=== PATIENT | male | born 2000 | race African-American/Black ===

== ENCOUNTER 2024-10-30 00:09 | Day surgery (SDC) | payer OTHER, SELFPAY ==
[2024-10-24 09:38] VITALS: BMI 30.8
--- NOTE | 2024-10-24 09:46 | PC.NURSE ---
Report to Hospital entrance 7 to the right of the green pavilion located off [address] just off the [address]'s parking, at time _0630_ on date _[id number]_. Planned Procedure Time: _0830_.? Time changes happen often and if your time is changed the preop area will call you the afternoon before. - You and your visitor will be asked to self-screen and do not enter if you have any COVID symptoms. Please call surgeon if you need to reschedule. - A mask is optional within the hospital at this time. Patients may have clear liquids (water, carbonated beverages, clear teas, apple juice) until 3 hours prior to surgery with a maximum of 20 ounces. - No food from midnight until time of surgery and no smoking, or chewing tobacco (or any form of nicotine). No chewing gum, candy or mints. Take only the following medications with a SIP of water on the morning of surgery: ___None___ DO NOT STOP ANY OF YOUR OTHER PRESCRIPTION MEDICATIONS PRIOR TO SURGERY EXCEPT THE FOLLOWING Hold all vitamins and supplements for 3 days per anesthesiologist. Please no make-up, nail faroese, hairspray, perfume, deodorant, or body powder the day of surgery.? No jewelry (including any body piercings) or valuables the day of surgery, leave them at home.? Please take a shower or bath the night before, or the morning of, surgery with an antibacterial soap.? Wear comfortable, loose fitting clothing.? - Jewelry must be removed prior to entering the operating room.? Rings and piercings that are not removed may be cut off. - The hospital will not accept responsibility for valuables.? - Please leave all valuables, including medications, at home the day of surgery. If you are going home after surgery, a licensed transit bus driver must drive you home.? - NO public transportation without another adult if you receive anesthesia. - We recommend that an adult stay with you for 24 hours following discharge. - We also recommend that you do not drive, make important decision, drink alcoholic beverages, or take any drugs that were not prescribed by your health care provider for at least 24 hours after your discharge time. Follow any additional instructions given to you from your surgeon. Telephone instructions given to __Buffy Soria__and asked if any additional questions and then verbalized understanding. Patient advised to call surgeon office or pre surgery nurse liaison [phone] if any additional questions.
--- NOTE | 2024-10-29 11:39 | PM.SD2 ---
Same Day Admit/Disch: HPI History of Present Illness Chief complaint: Rt Ing Hernia Narrative: Aaron Ross is a 24 year old male who is a prisoner at [facility]. He noticed a bulge in the right groin last year while playing basketball. This bulge will come and go but will resolve with lying down. He notices pain with activity and straining. He was seen in the office and found to have a right inguinal hernia. He is taken to surgery now for robotic laparoscopic right inguinal hernia repair under anesthesia. [facility] Family History Family History Other Hypertension Social History Social History Smoking status: Former smoker Alcohol intake: never Substance use: unknown Current Housing: Decline to Answer Concerned About Future Housing: Decline to Answer Difficulty Paying Gas/Electric Bills: Decline to Answer Difficulty Paying for Meds: Decline to Answer Currently Unemployed: Decline to Answer Education: Decline to Answer Difficulty w/ Childcare or Family Care: Decline to Answer Living arrangements: incarcerated Same Day Admit/Disch: Med Pre-admit Medications Home Medications ?Medication ?Instructions ?Recorded ?Confirmed ?Type ibuprofen 600 mg tablet 600 mg PO Q6H PRN pain #14 tabs 10/30/24 Rx Review of Systems Review of Systems All systems reviewed & are unremarkable except as noted in HPI and below (HPI) Exam Const: General: comfortable, no acute distress, alert and awake HENMT: Head: normocephalic and atraumatic Mouth: Yes Normal oral and palatal mucosa present Eyes: Conjunctivae: conjunctivae normal Pupils: Equal, round and reactive pupils present EOM: EOMs intact bilaterally Neck: Neck: normal visual inspection, no lymphadenopathy and nontender Resp: Effort & Inspection: normal respiratory effort Auscultation: clear to auscultation bilaterally Cardio: Rate: regular rate Rhythm: regular rhythm Heart sounds: no gallops, no murmurs and no rubs GI: Inspection: non-distended GI Palp: Yes Soft to palpation, No Tenderness to palpation present (GI), No Hepatomegaly present, No Splenomegaly present and Yes Hernia present other (Right inguinal hernia) Other: Large right inguinal hernia that extends into the scrotum. It is reducible and mildly tender. No left inguinal hernia. Testicles scrotum penis are normal. Skin: Lesions: no lesions Rashes: no rashes Neuro: General: no focal motor deficits and CN's II-XI intact bilaterally Cranial nerves: Yes Equal, round and reactive pupils present, Yes Bilaterally intact EOM present, Yes facial symmetry and Yes Midline tongue present Speech: normal speech Motor exam (neuro): 5/5 motor strength present throughout and Motor abnormalities not present Extrem: General: no clubbing, cyanosis or edema and edema Psych: Affect: normal affect Thought process: Normal thought process present Insight: Good insight present (Psych) DS: Summary Time Spent with Patient Time attestation: Total time spent providing and/or coordinating discharge services: DS: Admitting Diagnosis Discharge Date 10/30/2024 Admitting Diagnosis Large, reducible, right inguinal hernia-plan to proceed with robotic laparoscopic repair with mesh. This procedure was discussed thoroughly with the patient including the risks benefits and alternatives. The usual length of the surgery as well as the length of recovery have been discussed. Activity restrictions following surgery and follow-up visits have been discussed. All questions were answered. He understands and agrees to go ahead. DS: Discharge Diagnosis Discharge Diagnosis (1) Right inguinal hernia: Code(s): K40.90 - Unilateral inguinal hernia, without obstruction or gangrene, not specified as recurrent Status: Chronic Assessment and Plan: Repaired laparoscopically on the de [employer] robot 10/30/[address] Martinez (2) Weight loss, unintentional: Code(s): R63.4 - Abnormal weight loss Status: Acute Assessment and Plan: Patient reports 20 lb weight loss in the last 5 months. No abdominal or other pain reported. Preoperative labs including BMP and CBC were normal other than a low white blood cell count. Discharge Plan Discharge Patient Disposition: Home, Self-Care Discharge Instructions: 1. May shower the day after surgery over incisions. 2. Call office for: -Wound increasingly painful or bleeding -Vomiting -Fever of greater than 101 degrees 3. Keep scrotum wrapped with Lino wrap for 24 hours. Wear scrotal support for 1 week except when showering or sleeping. 4. If no bowel movement for three days, take 1 oz. (30 ml) Milk of Magnesia, if no results, take Fleets enema. 5. No heavy lifting > 15-20 pounds for 2 weeks. 6. May take Tylenol as needed for postoperative pain with the ibuprofen prescription that was written. 7. Up walking 10-30 minutes three times per day. 8. Resume previous home medications. 9. Follow-up 10-14 days in office for wound check or as previously scheduled. 10. Oral pain medications prescription to be sent home with patient. 11. NUTRITION: Start out by drinking fluids and increase your diet as tolerated. If you experience nausea, try dry toast, crackers, and 7-UP. If nausea or vomiting persists, contact your surgeon?s office. Patient Language: Tristanian Stand Alone Forms: General Discharge Instructions Follow-up/Referrals: Nithin Martinez MD [Physician] - 2 Weeks Discharge Medications: New ibuprofen 600 mg tablet 600 mg PO Q6H PRN (Reason: pain) Qty: 14 0RF
[2024-10-30] VITALS (9 sets, daily range): BP systolic 112–141; BP diastolic 60–78; PULSE 50–74; RESP 14–18; TEMP 36.4–36.7; O2SAT 100; BMI 25.1
--- NOTE | 2024-10-30 07:07 | WPDHPUPDATE1 ---
History and Physical Update Update Date/Time: 10/30/24 07:07 History and Physical has been reviewed, including an updated exam of the patient. There are NO changes in the patient's condition. Risks, benefits, and alternatives have been discussed and questions answered. Patient agrees to proceed with procedure.
[2024-10-30 07:17] LABS: Glucose Point of Care 58 mg/dl (65-105)
[2024-10-30] MEDS: ACETAMINOPHEN 500 MG TABLET 1000 MG PO (07:32)
[2024-10-30] MEDS: ceFAZolin 2 GM/D5W 50 ML 2 GM/50 ML BAG IVPB (07:34)
[2024-10-30] MEDS: KETOROLAC 15 MG/ML VIAL (*BKC) IV PUSH (07:34)
[2024-10-30] MEDS: DEXTROSE 50% 25 GM/50 ML SYRINGE IV PUSH (07:41)
[2024-10-30 07:42] LABS: Hematocrit 46.7 % (42.0-52.0); Hemoglobin 15.5 g/dL (14.0-18.0); Mean Corpuscular HGB Conc 33.2 g/dl (32-36); Mean Corpuscular Hemoglobin 29.4 pg (26-34); Mean Corpuscular Volume 88.6 fl (80-100); Mean Platelet Volume 9.4 fl (7.4-10.4); Platelet Count Result 218 k/mm3 (150-375); Red Blood Count 5.27 M/mm3 (4.6-6.20); Red Cell Distribution Width 12.2 % (11.5-14.5); White Blood Count 3.5 K/mm3 (4.5-10.0)
[2024-10-30] MEDS: LACTATED RINGERS 1,000 ML 30 ML IV CONT ×3 (07:45→11:28)
[2024-10-30 07:55] LABS: Anion Gap 8 mmol/L (4-12); Blood Urea Nitrogen 17 mg/dL (9-20); Calcium 9.8 mg/dL (8.4-10.2); Carbon Dioxide 30 mmol/L (22-30); Chloride 101 mmol/L (98-107); Estimated CRCL calculation 119 ml/min; Estimated Glomerular Filt Rate > 60; Glucose 73 mg/dL (65-110); Potassium 4.2 mmol/L (3.4-5.0); Sodium 139 mmol/L (137-145)
[2024-10-30 08:08] LABS: Glucose Point of Care 93 mg/dl (65-105)
--- NOTE | 2024-10-30 08:15 | P.PNAN_ITS ---
Anes - Initial Pre Proc Eval Procedure: Operation Date: 10/30/24 08:30 Proposed Procedures p Robotic Laparoscopic Repair Right Inguinal Hernia - Nithin Martinez MD Date/Time: 10/30/24 08:15 Surgeon: Nithin Martinez MD Pre Op Diagnosis: Rt Ing Hernia Patient Data Age: 24 Gender: M Height: 1.8 m Weight: 81.8 kg Last Vital Signs Temp 98.1 F 10/30/24 05:55 Pulse 50 L 10/30/24 05:55 Resp 16 10/30/24 05:55 BP 130/68 10/30/24 05:55 Pulse Ox 100 10/30/24 05:55 Allergies Allergy/AdvReac Type Severity Reaction Status Date / Time No Known Allergies Allergy Verified 10/30/24 07:58 Home Medications ?Medication ?Instructions ?Recorded ?Confirmed ?Type No Home Medications 06/24/24 10/24/24 History Laboratory Tests 10/30/24 10/30/24 10/30/24 07:14 07:29 08:05 WBC 3.5 L K/mm3 (4.5-10.0) RBC 5.27 M/mm3 (4.6-6.20) Hgb 15.5 g/dL (14.0-18.0) Hct 46.7 % (42.0-52.0) MCV 88.6 fl (80-100) MCH 29.4 pg (26-34) MCHC 33.2 g/dl (32-36) RDW 12.2 % (11.5-14.5) Plt Count 218 k/mm3 (150-375) MPV 9.4 fl (7.4-10.4) Sodium 139 mmol/L (137-145) Potassium 4.2 mmol/L (3.4-5.0) Chloride 101 mmol/L (98-107) Carbon Dioxide 30 mmol/L (22-30) Anion Gap 8 mmol/L (4-12) BUN 17 mg/dL (9-20) Creatinine 1.01 mg/dL (0.7-1.3) Estim Creat Clear Calc 119 ml/min Estimated GFR > 60 (59 - ) Glucose 73 mg/dL (65-110) POC Capillary Glucose 58 L* mg/dl 93 mg/dl (65-105) (65-105) Calcium 9.8 mg/dL (8.4-10.2) Blood Type Pending Antibody Screen Pending Patient hx anesthesia problems: none Family hx anesthesia problems: none Results Review: All pre-operative results and documents have been reviewed as part of the pre- operative evaluation. PMFSH Family History Family History Other Hypertension Social History Social History Smoking status: Former smoker Alcohol intake: never Substance use: unknown Current Housing: Decline to Answer Concerned About Future Housing: Decline to Answer Difficulty Paying Gas/Electric Bills: Decline to Answer Difficulty Paying for Meds: Decline to Answer Currently Unemployed: Decline to Answer Education: Decline to Answer Difficulty w/ Childcare or Family Care: Decline to Answer Living arrangements: incarcerated Anes - Eval Final PreProcedure Day of Procedure 10/30/24 08:15 Patient weight: normal and thin Lungs: normal air movement Airway: Mallampati scale class II and special considerations (Upper perm partial. ) Neurological: alert and oriented Last oral intake: >/= 8 hours ASA classification: II Emergent: no Anesthetic plan: proceed Anesthesia type and monitoring: general ETT and standard monitoring Results Review: All pre-operative results and documents have been reviewed as part of the pre- operative evaluation. FSBS 58 in preop area, hypoglycemia protocol done. Other labs ordered by Dr Martinez and nml overall, exception WBC 3K. Pt w good exercise tolerance, playing baseketball, no cp or sob. Ex smoker, quit approx 2017. Informed Consent: The patient's anesthetic plan and its attendant risks and benefits were discussed with the patient/family/POA. Questions were solicited and answers provided to the satisfaction of the patient/family/POA.
[2024-10-30] MEDS: BUPIVACAINE/EPINEPHRINE 0.5% 50 ML VIAL 30 ML INFILTRATE (09:08)
--- NOTE | 2024-10-30 10:47 | W.PM.PROC2 ---
Procedure Note - Detailed Date of Procedure 10/30/24 Pre-op Diagnosis Rt Ing Hernia Post-op Diagnosis Same Procedure Performed Robotic laparoscopic repair right inguinal hernia with mesh Surgeon Nithin Martinez MD Care Services Manager Lynda SANTOS Anesthesia General and Local Indications Patient has longstanding right groin bulge. It is sometimes painful. He was seen in the office and found to have a large right inguinal hernia that extends to the scrotum. There was no left inguinal hernia. He is taken to surgery now for robotic laparoscopic right inguinal hernia repair. Findings This was a large indirect hernia. Description of Procedure Patient was taken to surgery and induced into general anesthesia. The abdomen is prepped and draped. Trocars were placed in the usual fashion starting with an applied Medical optical trocar in the left subcostal position. Robotic trocars were placed under direct visualization and the optical trocar was replaced with a robotic trocar as well. We also placed our suture and the mesh at this time. Ilioinguinal nerve block was also applied. The robot arms were brought in the field and the camera was docked and targeted. The instrument arms were docked and the instruments positioned. The surgeon went to the robotic console. A peritoneal flap anteriorly across the inguinal canal area was then created. Cautery was used for hemostasis. Flap was developed broadly. On the medial aspect, we dissected directly underneath the rectus abdominis muscle down to the pubis and Daniele's ligament. We also direct dissected across the midline onto the patient's left rectus the medial border. Laterally, dissection was also carried out. I also scored some of the tissue on the lateral aspect of the sac to try to expose the cord structures. This was able to be accomplished. I then placed traction on the hernia sac and began dissecting anteriorly to divide the transversalis laying. This dissection was continued repeatedly. There was a very large sac. Cord structures, particularly the vas deferens was intimately associated with the hernia sac. Dissection of the cord structures from the hernia sac proceeded and eventually we came to the end of very large hernia sac. Hemostasis was achieved throughout to hopefully avoid any significant scrotal seroma or bruising. Once the hernia sac and been completely reduced and the cord structures were completely dissected away from the sac, I then continued to free the peritoneum posteriorly so there would be plenty of room for the mesh to lay freely. I then positioned the mesh appropriately. 3-0 Vicryl suture was used to secure the mesh to Daniele's ligament. Two additional anterior sutures were placed, 1 on each side of the inferior epigastric vessels. The mesh fit nicely in the inguinal canal space. I clip an closed the peritoneal opening with running 3 0 V lock suture. There were a couple of small holes in the peritoneal flap. I closed each of these with residual 3-0 Vicryl suture. All looked good. We then evacuated CO2 and removed the instruments. The robot was undocked and the trocars were removed. Skin wounds were closed with subcuticular 4-0 Monocryl skin suture. A scrotal support was placed. Patient was awakened and taken to recovery in good condition. Sponge and needle counts were correct x2. Implants Right sided 17 x 12 cm extra-large mid 3DMax mesh Estimated Blood Loss -5 Drains No Packing No Pathology None sent Complications None Condition Stable Disposition PACU [facility] Billing Surgery - Charge Forward: Surgery Billing (Robotic laparoscopic repair right inguinal hernia)
[2024-10-30 11:01] LABS: Glucose Point of Care 81 mg/dl (65-105)
[2024-10-30] MEDS: oxyCODONE HCL (*CRX) 5 MG TAB IR PO (11:45)
== END 2024-10-30 12:47 | disposition home or self-care (01) ==
PROVIDERS: PCP Physician Assistant; Visit Provider Surgery
PROC: 8E0Y4CZ Robotic Assisted Procedure of Lower Extremity, Percutaneous Endoscopic Approach (ICD-10-PCS; CPT 49650; principal; 2024-10-30 08:30)
DX: K40.90 Unilateral inguinal hernia, without obstruction or gangrene, not specified as recurrent (principal); Z87.891 Personal history of nicotine dependence
CPT/HCPCS: 49650; S2900; 36415; 80048; 82948; 85027; 86850; 86900; 86901; A9270; C1781; J0690; J1100; J1885; J2003; J2250; J2405; J2704; J3010; J7030; J7120